=== PATIENT | male | born 1960 | race Two or more races ===

== ENCOUNTER 2022-09-17 06:21 | Observation (INO) | payer OTHER ==
[2022-09-09 11:27] LABS: BASOPHILS % (AUTO) 0.5 % (0-1); EOSINOPHILS # (AUTO) 0.1 X10'3 (0-0.9); LYMPHOCYTES # (AUTO) 1.4 X10'3 (1.1-4.8); LYMPHOCYTES % (AUTO) 35.6 % (21-51); MEAN CORPUSCULAR HEMOGLOBIN 29.1 PG (27.0-31.0); MEAN CORPUSCULAR HGB CONC 32.8 g/dL (33.0-36.5); MEAN CORPUSCULAR VOLUME 88.6 FL (78-98); MEAN PLATELET VOLUME 8.9 FL (7.4-10.4); MONOCYTES # (AUTO) 0.3 X10'3 (0-0.9); MONOCYTES % (AUTO) 7.4 % (2-12); NEUTROPHILS # (AUTO) 2.1 X10'3 (1.8-7.7); NEUTROPHILS % (AUTO) 53.5 % (42-75); PRE OP HEMOGLOBIN 15.4 g/dL (14.0-17.9); PRE OP PLATELET COUNT 255 X10'3 (140-440); RED BLOOD COUNT 5.31 X10'6 (4.70-6.10); RED CELL DISTRIBUTION WIDTH 13.5 % (11.5-14.5)
[2022-09-09 11:40] LABS: ALBUMIN 3.7 G/DL (3.4-5.0); ALBUMIN/GLOBULIN RATIO 1.1 (1.1-1.5); ALKALINE PHOSPHATASE 78 IU/L (46-116); BLOOD UREA NITROGEN 11 MG/DL (7-18); BUN/CREATININE RATIO 12.2 (10.0-20.0); CALCIUM 8.7 MG/DL (8.5-10.1); CHLORIDE 106 MMOL/L (99-107); PRE OP ALT 33 U/L (30-65); PRE OP ANION GAP 9 (8-16); PRE OP AST 19 U/L (10-37); PRE OP BILIRUB, TOTAL 0.5 MG/DL (0.0-1.0); PRE OP GLUCOSE 94 MG/DL (70-104); PRE OP SODIUM 144 MMOL/L (135-145); TOTAL CARBON DIOXIDE 29.2 MMOL/L (24-32); TOTAL PROTEIN 7.1 G/DL (6.4-8.2); eGFR 86 ML/MIN
[2022-09-17] VITALS (21 sets, daily range): BP systolic 123–168; BP diastolic 74–93
[~2022-09-17] VITALS: Ht 299.7 cm; Wt 69.7 kg
[~2022-09-17 06:21] MED LIST: NO HOME MEDS; cefazolin 2gm/D5W 100mL 100 ML IV ONE; famotidine 20mg tablet PO ONE; tranexamic acid inj. 1,000 MG in normal saline IV soln 100ML IV ONE; vancomycin 1,500 MG in NS 300ml IV soln IV ONE
[2022-09-17] MEDS: ringers solution, lacted 1,000 ML IV SCH ×3 (06:57→20:49)
[2022-09-17] MEDS ORDERED: ROPIVAcaine inj 200 MG, epiNEPHrine inj 0.6 MG, morphine 10mg/ml inj. 5 MG in normal sa... IU ONE (08:10)
--- NOTE | 2022-09-17 08:32 | NUR ---
PT WA ABLE TO COMPLETE ALL 5 SHOWERS AND OINTMENT INSTRUCTED, REVIEWED GIVEN JOINT RESOURCES, PULSES PRESENT TO BLE, CSM PRESENT
[2022-09-17] MEDS ORDERED: tetracaine 1% (10mg/ml) pres. free inj. ONE (08:38)
[2022-09-17] MEDS ORDERED: fentaNYL/PF 50MCG/1 ML 2ML syringe ONE (08:41)
[2022-09-17] MEDS ORDERED: MIDAZolam 1mg/ml 10ml vial ONE (08:41)
[2022-09-17] MEDS ORDERED: ROPIVAcaine 0.5% (5mg/ml) 30ml vial IJ ONE (09:00)
[2022-09-17] MEDS ORDERED: ondansetron/PF 4mg/2ml inj IV PRN ×2 (09:50→11:05)
[2022-09-17] MEDS ORDERED: ringers solution, lacted 1,000 ML IV SCH (09:50)
[2022-09-17] MEDS ORDERED: ROPIVAcaine 0.2%/PF PUMP/bolus 545 ML ADDCANAL SCH (09:50)
[2022-09-17] MEDS ORDERED: morphine 2 MG/ML inj. syringe IV PRN (09:50)
[2022-09-17] MEDS ORDERED: meperidine/PF 25mg/ml syringe IV PRN ×3 (09:50)
[2022-09-17] MEDS ORDERED: morphine 4 MG/ML inj SYRINge IV PRN (09:50)
[2022-09-17] MEDS ORDERED: ROPIVAcaine 0.2% (10 MG/5 ML) BOLUS INJECTION ADDCANAL PRN (09:50)
[2022-09-17] MEDS ORDERED: proCHLORperazine 10 MG/2 ml inj IV PRN (09:50)
[2022-09-17] MEDS ORDERED: vancomycin 1,000mg inj ONE (10:01)
[2022-09-17] MEDS ORDERED: ROPIVAcaine 0.5% (5mg/ml) 30ml vial ONE (10:45)
[2022-09-17] MEDS ORDERED: oxyCODONE IR 5mg (immed. release) tablet PO PRN ×2 (11:05)
[2022-09-17] MEDS ORDERED: HYDROmorphone 1 mg/ml syringe IV PRN (11:05)
[2022-09-17] MEDS ORDERED: HYDROmorphone inj. 0.5 MG/0.5 ML DISP.SYRIN IV PRN (11:05)
[2022-09-17] MEDS ORDERED: magnesium hydroxide 30ml (MOM) UD suspension PO PRN (11:05)
[2022-09-17] MEDS ORDERED: naloxone 0.4 mg/ml inj IV PRN (11:05)
[2022-09-17] MEDS ORDERED: acetaminophen 325mg tablet PO PRN (11:05)
[2022-09-17] MEDS ORDERED: bisacodyl 10mg suppository rectal RC PRN (11:05)
[2022-09-17] MEDS ORDERED: diphenhydrAMINE 25mg capsule PO PRN ×2 (11:05)
--- NOTE | 2022-09-17 11:16 | NUR ---
Received from OR via [facility] BED TO RR 4, accompanied by Anesthesiologist DR BLANTON and report given by Anesthesiolgist. PT PRESENTS WITH PIV 20G LEFT HAND, RIGHT KNEE WRAP WITH POWDER PACK, ON-Q READY, PEDAL PULSES PALPABLE, SPO2 100% ROOM AIR, LR RUNNING AT 100MLS/HR, VSS. Addendum: 09/17/22 at 1131 by Yanelis Flaherty RN, RN Amended: Links added.
--- NOTE | 2022-09-17 11:44 | NUR ---
ON-Q CHECKED FOR LEAKS AND PATENCY. Addendum: 09/17/22 at 1145 by Yanelis Flaherty RN, RN Amended: Links added.
[2022-09-17] MEDS ORDERED: tranexamic acid inj. 700 MG in normal saline 100ml IV soln 93 ML IV ONE (12:30)
--- NOTE | 2022-09-17 13:06 | NUR ---
Report called to receiving nurse CAROL PALMER. Transferred via HOSPITAL BED TO ROOM 4011A BY PENNY MEAD Belongings GLASSES AND RONDON JAVON WITH 1 PT BELONGING BAG TO ROOM 4011A WITH PT. Special Issues communicated to receiving nurse. Addendum: 09/17/22 at 1309 by Yanelis Flaherty RN RN Amended: Links added.
[2022-09-17] MEDS: acetaminophen 325mg tablet PO SCH ×2 (15:30→20:47)
[2022-09-17] MEDS: gabapentin 300mg capsule PO SCH ×2 (15:30→20:47)
[2022-09-17] MEDS: ceFAZolin/D5W- 1GM premix 50 ML IV SCH ×2 (16:32→23:45)
--- NOTE | 2022-09-17 18:00 | NUR ---
I have reviewed and agree with interventions, assessments, and documentation by Rosenda Boyd LVN
--- NOTE | 2022-09-17 18:39 | NUR ---
Patient in room ORTHO 4011. I have received report from Rosenda JAVIER and had the opportunity to ask questions and assume patient care.
[2022-09-17] MEDS ORDERED: vancomycin/NS 1 GM ADD-VANTAGE 250 ML IV SCH (20:00)
--- NOTE | 2022-09-17 20:00 | NUR ---
focused assessment - pt able to pump ankle, states sensation intact on right leg. knee wrap and dressing intact. on Q increased to 6. educated how to give bolus. IV left wrist intact. will need coban - notified Luzma. I placed additional piece of tape. patient requested to walk. got up with 2 assist. stood well no dizziness. walked 5 steps, started to get dizzy. returned to bed. educated on breathing while walking and not holding breath. pt reported walking increased pain. pain meds given. lennon draining clear yellow. ice pack refreshed. reported to YAYA bonilla
[2022-09-17] MEDS ORDERED: sennosides 8.6mg tablet PO SCH (21:00)
[2022-09-18 02:00] VITALS: BP 120/71
[2022-09-18] MEDS: acetaminophen 325mg tablet PO SCH ×2 (02:08→09:16)
[2022-09-18 06:00] VITALS: BP 141/83
--- NOTE | 2022-09-18 06:42 | NUR ---
Patient in room ORTHO 4011. I have received report from YAYA Segal and had the opportunity to ask questions and assume patient care.
[2022-09-18] MEDS ORDERED: enoxaparin 40mg/0.4ml syringe SQ SCH (08:00)
[2022-09-18] MEDS: gabapentin 300mg capsule PO SCH (09:16)
[2022-09-18 10:00] VITALS: BP 165/90
--- NOTE | 2022-09-18 12:35 | NUR ---
Patient was discharged at 1132 with instructions, verbalizing understanding of instructions, in wheelchair accompanied by nursing staff going home via private vehicle. All lines and tubes including PIV with cannula intact have been removed. Education has been provided at bedside and all questions have been answered. Patient already has a follow up appointment with Dr. Urena. Patient is stable and appropriate for discharge.
--- NOTE | 2022-09-18 12:43 | NUR ---
Joint surgery consult: Pt admit for total right knee arthroplasty per EMR. Pt was discharged earlier today therefore unable to provided high protein education in person. Mailed written high protein education with [facility] contact information to patient's home address provided via EMR. Addendum: 09/18/22 at [address] Amended: Links added. Addendum: 09/18/22 at [address] [facility] has reviewed and approves of above note.
[2022-09-18] MEDS ORDERED: celeCOXIB 100mg capsule PO SCH (20:00)
[2022-09-19] MEDS ORDERED: acetaminophen 325mg tablet PO PRN (11:05)
== END 2022-09-18 12:00 | disposition home or self-care (01) ==
LOC: PAS 06:21 → ORTHO 4S 13:24
PROVIDERS: ADMIT Orthopaedic Surgery; ATTEND Orthopaedic Surgery
DX: M17.11 Unilateral primary osteoarthritis, right knee (principal); G89.18 Other acute postprocedural pain
CPT/HCPCS: 27447; 36415; 64447; 73560; 80053; 82948; 85025; 87081; 93005; 96365; 96366; 96367; 96372; 97110; 97161; 97530; C1776; G0378; J0690; J1650; J2250; J2795; J3010; J3370; J3490; J7120; A4215; A6258; A6446; A6449; A7000; C1758